=== PATIENT | female | born 1990 | race Hispanic/Latino ===

== ENCOUNTER 2020-07-22 15:49 | Emergency (ER) | payer MEDICAID ==
[2020-07-22 17:07] LABS: Bacteria,Urine 1+ /HPF (Negative); Bilirubin,Urine NEG (Negative); Blood,Urine NEG (Negative); Color,Urine Yellow (Yellow); Mucus,Urine FEW /HPF; Protein,Urine <15 mg/dL mg/dL (Negative); Urobilinogen,Urine < 2.0 mg/dL (<2.0)
[2020-07-22 17:12] LABS: Basophils # (Auto) 0.1 K/mm3 (0.0-0.1); Basophils % (Auto) 0.5 % (0.0-1.8); Eosinophils # (Auto) 0.2 K/mm3 (0.0-0.4); Eosinophils % (Auto) 1.6 % (0.0-4.3); Hemoglobin 13.7 gm/dl (10.1-14.3); Lymphocytes # (Auto) 1.7 K/mm3 (1.2-5.4); Lymphocytes % (Auto) 15.2 % (13.4-35.0); Mean Corpuscular HGB Conc 33 % (30-34); Mean Corpuscular Volume 87 fl (79-97); Monocytes # (Auto) 0.5 K/mm3 (0.0-0.8); Monocytes % (Auto) 4.9 % (0.0-7.3); Platelet Count 135 K/mm3 (140-440); Red Blood Count 4.73 M/mm3 (3.65-5.03); Red Cell Distribution Width 13.6 % (13.2-15.2)
[2020-07-22 17:36] LABS: Alanine Aminotransferase 15 units/L (7-56); Albumin 4.7 g/dL (3.9-5); Blood Urea Nitrogen 15 mg/dL (7-17); Calcium 9.9 mg/dL (8.4-10.2); Hemolysis Index 13
[2020-07-22 17:42] LABS: BUN/Creatinine Ratio 25
--- NOTE | 2020-07-22 17:55 | Emergency Department Report ---
ED General Adult HPI - General Chief complaint: Abdominal Pain Stated complaint: ABD PAIN Time Seen by Provider: 07/22/20 17:00 Source: patient Mode of arrival: Ambulatory Limitations: No Limitations - History of Present Illness Initial comments: 30-year-old female patient presents with complaints of suprapubic/right lower quadrant pain that began suddenly around 2 AM last night. She rates her current pain as a 7/10 in severity and describes it as stabbing and aching. Patient reports history of a ruptured ovarian cyst that caused severe internal bleeding and required surgery in November of this year. She also has surgical history of a tubal ligation. She denies any dysuria, hematuria, vaginal bleeding, vaginal discharge, fever/chills/sweats, vomiting, melena/hematochezia/diarrhea. Patient states the pain did start suddenly while having intercourse. She denies any concerns for STIs. -: Sudden Radiation: back Consistency: constant Improves with: immobilization Worsens with: movement - Related Data Previous Rx's Medication Instructions Recorded Last Taken Type Hydrocodone Bit/Acetaminophen 1 each PO Q6H PRN #20 tablet 08/12/13 Unknown Rx [Lortab 10-500 mg] cephALEXin [Keflex] 500 mg PO BID #20 capsule 08/12/13 Unknown Rx Acetaminophen/Codeine [Tylenol 1 tab PO Q8H PRN #8 tab 07/22/20 Unknown Rx /Codeine # 3 tab] Allergies Allergy/AdvReac Type Severity Reaction Status Date / Time No Known Allergies Allergy Unverified 08/12/13 00:22 ED Review of Systems ROS: Stated complaint: ABD PAIN Other details as noted in HPI Constitutional: denies: chills, diaphoresis, fever, malaise, weakness Respiratory: denies: cough, shortness of breath Cardiovascular: denies: chest pain Endocrine: denies: excessive sweating Gastrointestinal: abdominal pain, nausea. denies: vomiting, diarrhea, constipation, hematemesis, melena, hematochezia Genitourinary: denies: dysuria, frequency, hematuria, abnormal menses Musculoskeletal: denies: joint swelling Skin: denies: rash, lesions, change in color Neurological: denies: headache Hematological/Lymphatic: denies: swollen glands ED Past Medical Hx - Past Medical History Previous Medical History?: Yes Additional medical history: Preeclampsia, Ovarian cyst, SOCORRO - Surgical History Past Surgical History?: Yes Additional Surgical History: Tubaligation, Ruptured ovarian cyst surgery - Social History Smoking Status: Never Smoker Substance Use Type: Alcohol - Medications Home Medications: Home Medications Medication Instructions Recorded Confirmed Last Taken Type Hydrocodone Bit/Acetaminophen 1 each PO Q6H PRN #20 tablet 08/12/13 Unknown Rx [Lortab 10-500 mg] cephALEXin [Keflex] 500 mg PO BID #20 capsule 08/12/13 Unknown Rx Acetaminophen/Codeine [Tylenol 1 tab PO Q8H PRN #8 tab 07/22/20 Unknown Rx /Codeine # 3 tab] ED Physical Exam - General Limitations: No Limitations General appearance: alert, in no apparent distress, obese - Head Head exam: Present: atraumatic, normocephalic - Eye Eye exam: Present: normal appearance. Absent: scleral icterus - Neck Neck exam: Present: normal inspection - Respiratory Respiratory exam: Present: normal lung sounds bilaterally. Absent: respiratory distress - Cardiovascular Cardiovascular Exam: Present: regular rate, normal rhythm. Absent: systolic murmur, diastolic murmur, rubs, gallop - GI/Abdominal GI/Abdominal exam: Present: soft, tenderness (Suprapubic, right lower quadrant), normal bowel sounds. Absent: rebound, rigid - Expanded GI/Abdominal Exam Expanded GI/Abdominal exam: Present: tenderness at [place]bur[place]'s Point. Absent: Cook's sign - Back Exam Back exam: Present: normal inspection. Absent: CVA tenderness (R), CVA tenderness (L) - Neurological Exam Neurological exam: Present: alert, oriented X3 - Psychiatric Psychiatric exam: Present: normal affect, normal mood - Skin Skin exam: Present: warm, dry, intact, normal color. Absent: rash, cyanosis, diaphoretic ED Course Vital Signs 07/22/20 16:03 Temperature 98.2 F Pulse Rate 78 Respiratory 18 Rate Blood Pressure 130/73 O2 Sat by Pulse 98 Oximetry ED Medical Decision Making - Lab Data Result diagrams: 07/22/20 16:22 07/22/20 16:22 Lab Results 07/22/20 07/22/20 07/22/20 Range/Units 16:16 16:16 16:22 WBC 11.1 H (4.5-11.0) K/mm3 RBC 4.73 (3.65-5.03) M/mm3 Hgb 13.7 (10.1-14.3) gm/dl Hct 41.0 (30.3-42.9) % MCV 87 (79-97) fl MCH 29 (28-32) pg MCHC 33 (30-34) % RDW 13.6 (13.2-15.2) % Plt Count 135 L (140-440) K/mm3 Lymph % (Auto) 15.2 (13.4-35.0) % [place] % (Auto) 4.9 (0.0-7.3) % Eos % (Auto) 1.6 (0.0-4.3) % Baso % (Auto) 0.5 (0.0-1.8) % Lymph # 1.7 (1.2-5.4) K/mm3 [place] # 0.5 (0.0-0.8) K/mm3 Eos # 0.2 (0.0-0.4) K/mm3 Baso # 0.1 (0.0-0.1) K/mm3 Seg Neutrophils % 77.8 H (40.0-70.0) % Seg Neutrophils # 8.7 H (1.8-7.7) K/mm3 Sodium (137-145) mmol/L Potassium (3.6-5.0) mmol/L Chloride (98-107) mmol/L Carbon Dioxide (22-30) mmol/L Anion Gap mmol/L BUN (7-17) mg/dL Creatinine (0.6-1.2) mg/dL Estimated GFR ml/min BUN/Creatinine Ratio % Glucose (65-100) mg/dL Calcium (8.4-10.2) mg/dL Total Bilirubin (0.1-1.2) mg/dL AST (5-40) units/L ALT (7-56) units/L Alkaline Phosphatase (35-129) units/L Total Protein (6.3-8.2) g/dL Albumin (3.9-5) g/dL Albumin/Globulin Ratio % Lipase (13-60) units/L Urine Color Yellow (Yellow) Urine Turbidity Clear (Clear) Urine pH 6.0 (5.0-7.0) Ur Specific [place] 1.023 (1.003-1.030) Urine Protein <15 mg/dl (Negative) mg/dL Urine Glucose (UA) Neg (Negative) mg/dL Urine Ketones Neg (Negative) mg/dL Urine Blood Neg (Negative) Urine Nitrite Neg (Negative) Urine Bilirubin Neg (Negative) Urine Urobilinogen < 2.0 (<2.0) mg/dL Ur Leukocyte Esterase Neg (Negative) Urine WBC (Auto) 1.0 (0.0-6.0) /HPF Urine RBC (Auto) 1.0 (0.0-6.0) /HPF U Epithel Cells (Auto) 1.0 (0-13.0) /HPF Urine Bacteria (Auto) 1+ (Negative) /HPF Urine Mucus Few /HPF Urine HCG, Qual Negative (Negative) 07/22/20 Range/Units 16:22 WBC (4.5-11.0) K/mm3 RBC (3.65-5.03) M/mm3 Hgb (10.1-14.3) gm/dl Hct (30.3-42.9) % MCV (79-97) fl MCH (28-32) pg MCHC (30-34) % RDW (13.2-15.2) % Plt Count (140-440) K/mm3 Lymph % (Auto) (13.4-35.0) % [place] % (Auto) (0.0-7.3) % Eos % (Auto) (0.0-4.3) % Baso % (Auto) (0.0-1.8) % Lymph # (1.2-5.4) K/mm3 [place] # (0.0-0.8) K/mm3 Eos # (0.0-0.4) K/mm3 Baso # (0.0-0.1) K/mm3 Seg Neutrophils % (40.0-70.0) % Seg Neutrophils # (1.8-7.7) K/mm3 Sodium 140 (137-145) mmol/L Potassium 4.0 (3.6-5.0) mmol/L Chloride 103.3 (98-107) mmol/L Carbon Dioxide 22 (22-30) mmol/L Anion Gap 19 mmol/L BUN 15 (7-17) mg/dL Creatinine 0.6 (0.6-1.2) mg/dL Estimated GFR > 60 ml/min BUN/Creatinine Ratio 25 % Glucose 95 (65-100) mg/dL Calcium 9.9 (8.4-10.2) mg/dL Total Bilirubin 0.30 (0.1-1.2) mg/dL AST 17 (5-40) units/L ALT 15 (7-56) units/L Alkaline Phosphatase 42 (35-129) units/L Total Protein 7.4 (6.3-8.2) g/dL Albumin 4.7 (3.9-5) g/dL Albumin/Globulin Ratio 1.7 % Lipase 22 (13-60) units/L Urine Color (Yellow) Urine Turbidity (Clear) Urine pH (5.0-7.0) Ur Specific [place] (1.003-1.030) Urine Protein (Negative) mg/dL Urine Glucose (UA) (Negative) mg/dL Urine Ketones (Negative) mg/dL Urine Blood (Negative) Urine Nitrite (Negative) Urine Bilirubin (Negative) Urine Urobilinogen (<2.0) mg/dL Ur Leukocyte Esterase (Negative) Urine WBC (Auto) (0.0-6.0) /HPF Urine RBC (Auto) (0.0-6.0) /HPF U Epithel Cells (Auto) (0-13.0) /HPF Urine Bacteria (Auto) (Negative) /HPF Urine Mucus /HPF Urine HCG, Qual (Negative) - Radiology Data Radiology results: report reviewed TRANSVAGINAL PELVIC ULTRASOUND INDICATION / CLINICAL INFORMATION: Right lower quadrant and suprapubic pain. History of ovarian cysts. COMPARISON: None available. FINDINGS: The uterus measures 8.1 x 4.1 x 5.8 cm. The endometrial stripe measures 1.3 cm AP. No fibroids are seen. The right ovary measures 5.0 x 4.0 x 3.3 cm and the left ovary 3.6 x 2.8 x 2.0 cm. There is normal blood flow to both ovaries on Doppler exam. There is mild free fluid in the cul-de-sac. IMPRESSION: Mild free fluid in the cul-de-sac is most commonly physiologic. No evidence of ovarian mass or torsion. CT OF THE ABDOMEN AND PELVIS WITH INTRAVENOUS CONTRAST INDICATION / CLINICAL INFORMATION: Lower abdominal pain, worse on the right. TECHNIQUE: The patient received 100 cc Omnipaque [address] scans at this location are performed using CT dose reduction for ALARA by means of automated exposure control. COMPARISON: None available. FINDINGS: ABDOMEN: There are multiple gas-containing stones in the gallbladder. The gallbladder is normal in size without wall thickening or bile duct dilatation. The liver, spleen, pancreas, adrenal glands, kidneys and bowel demonstrate no significant abnormality. No adenopathy is seen. The lung bases are clear. PELVIS: There is a 4.0 cm corpus luteal cyst in a mildly enlarged right ovary. There is mild free fluid in the cul-de-sac. The uterus and left ovary are normal. A normal appendix is present and there is no evidence of diverticulitis. I do not identify a hernia. The distal ureters and urinary bladder are normal. IMPRESSION: 1. Mildly enlarged right ovary containing a 4 cm corpus luteal cyst. Mild associated free fluid in the cul-de-sac. 2. Cholelithiasis without CT evidence of acute cholecystitis. - Medical Decision Making 30-year-old female patient presents with complaints of suprapubic/right lower quadrant pain that began suddenly around 2 AM last night. She rates her current pain as a 7/10 in severity and describes it as stabbing and aching. Patient reports history of a ruptured ovarian cyst that caused severe internal bleeding and required surgery in November of this year. She also has surgical history of a tubal ligation. She denies any dysuria, hematuria, vaginal bleeding, vaginal discharge, fever/chills/sweats, vomiting, melena/hematochezia/diarrhea. Patient states the pain did start suddenly while having intercourse. She denies any concerns for STIs. No significant abnormalities are noted on transvaginal ultrasound. CT abdomen performed given location of pain and to rule out appendicitis. CT shows the followin. Mildly enlarged right ovary containing a 4 cm corpus luteal cyst. Mild associated free fluid in the cul-de-sac. 2. Cholelithiasis without CT evidence of acute cholecystitis. Patient denies symptoms being associated with eating. No Cook sign noted on exam. Symptoms likely due to large ovarian cyst. Recommend follow-up with PETROLEUM INSPECTOR in 3 days. Pain is controlled, vitals are normal, patient is stable for discharge home. Strict return precautions were discussed in great detail with patient who verbalized understanding. Critical care attestation.: If time is entered above; I have spent that time in minutes in the direct care of this critically ill patient, excluding procedure time. ED Disposition Clinical Impression: Acute abdominal pain Ovarian cyst Qualifiers: Laterality: right Qualified Code(s): N83.201 - Unspecified ovarian cyst, right side Disposition: - TO HOME OR SELFCARE Is pt being admited?: No Condition: Stable Instructions: Ovarian Cyst (ED) Additional Instructions: Please follow-up with your PETROLEUM INSPECTOR in 3 days Prescriptions: Acetaminophen/Codeine [Tylenol /Codeine # 3 tab] 1 tab PO Q8H PRN #8 tab PRN Reason: Pain , Severe (7-10) Referrals: PRIMARY CARE,MD [Primary Care Provider] - 3-5 Days
[2020-07-22] MEDS ORDERED: SODIUM CHLORIDE 0.9% 1000 ML 1,000 ML IV ONE (17:57)
[2020-07-22] MEDS ORDERED: ONDANSETRON 4 MG/2 ML INJ IV ONE (17:57)
[2020-07-22] MEDS ORDERED: MORPHINE 4 MG/1 ML INJ IV ONE (17:57)
[2020-07-22 18:14] LABS: HCG Qualitative,Urine Negative (Negative)
--- NOTE | 2020-07-22 19:37 | Ultrasound Report ---
TRANSVAGINAL PELVIC ULTRASOUND INDICATION / CLINICAL INFORMATION: Right lower quadrant and suprapubic pain. History of ovarian cysts. COMPARISON: None available. FINDINGS: The uterus measures 8.1 x 4.1 x 5.8 cm. The endometrial stripe measures 1.3 cm AP. No fibroids are se en. The right ovary measures 5.0 x 4.0 x 3.3 cm and the left ovary 3.6 x 2.8 x 2.0 cm. There is normal bl ood flow to both ovaries on Doppler exam. There is mild free fluid in the cul-de-sac. IMPRESSION: Mild free fluid in the cul-de-sac is most commonly physiologic. No evidence of ovarian ma ss or torsion. Signer Name: Allan Guido MD Signed: 07/22/2020 7:33 PM Workstation Name: [id number]
--- NOTE | 2020-07-22 20:29 | Cat Scan Report ---
CT OF THE ABDOMEN AND PELVIS WITH INTRAVENOUS CONTRAST INDICATION / CLINICAL INFORMATION: Lower abdominal pain, worse on the right. TECHNIQUE: The patient received 100 cc Omnipaque [address] scans at this location are performed using CT dose reduction for ALARA by means of automated exposure control. COMPARISON: None available. FINDINGS: ABDOMEN: There are multiple gas-containing stones in the gallbladder. The gallbladder is normal in si ze without wall thickening or bile duct dilatation. The liver, spleen, pancreas, adrenal glands, kidn eys and bowel demonstrate no significant abnormality. No adenopathy is seen. The lung bases are clear . PELVIS: There is a 4.0 cm corpus luteal cyst in a mildly enlarged right ovary. There is mild free flu id in the cul-de-sac. The uterus and left ovary are normal. A normal appendix is present and there is no evidence of diverticulitis. I do not identify a hernia. The distal ureters and urinary bladder ar e normal. IMPRESSION: 1. Mildly enlarged right ovary containing a 4 cm corpus luteal cyst. Mild associated free fluid in th e cul-de-sac. 2. Cholelithiasis without CT evidence of acute cholecystitis. Signer Name: Allan Guido MD Signed: 07/22/2020 8:24 PM Workstation Name: [id number]
[2020-07-22] MEDS ORDERED: KETOROLAC 30 MG/1 ML INJ IV ONE (20:40)
[2020-07-22 22:00] VITALS: BP 114/76
== END 2020-07-22 22:06 | disposition home or self-care (01) ==
LOC: ED 15:49
DX: N83.11 Corpus luteum cyst of right ovary (principal); K80.80 Other cholelithiasis without obstruction; Z98.51 Tubal ligation status; Z79.899 Other long term (current) drug therapy
CPT/HCPCS: 36415; 74177; 76830; 80053; 81001; 81025; 83690; 85025; 96361; 96374; 96375; 99284; J1885; J2270; J2405; J7030; Q9967

== ENCOUNTER 2020-10-12 10:17 | Day surgery (SDC) | payer MEDICAID ==
--- NOTE | 2020-10-12 11:08 | Anesthesia Day of Surgery ---
Anesthesia Day of Surgery - Day of Surgery Patient Examined: Yes Patient H&P Reviewed: Yes Patient is NPO: Yes
--- NOTE | 2020-10-12 11:09 | Anesthesia Consultation ---
Anesthesia Consult and Med Hx Date of service: 10/12/20 - Airway Anesthetic Teeth Evaluation: Chipped ROM Head & Neck: Adequate Mental/Hyoid Distance: Adequate Mallampati Class: Class II Intubation Access Assessment: Good - Pre-Operative Health Status ASA Pre-Surgery Classification: ASA2 Proposed Anesthetic Plan: General - Pulmonary Hx Smoking: Yes (STOPPED X 6 YRS) Hx Respiratory Symptoms: No (+2FS) Hx Sleep Apnea: No (HUSSAIN PRE SCREEN LOW RISK) - Cardiovascular System Hx Hypertension: No - Central Nervous System Hx Psychiatric Problems: No - Gastrointestinal Hx Gastroesophageal Reflux Disease: No - Endocrine Hx Renal Disease: No Hx Non-Insulin Dependent Diabetes: No Hx Thyroid Disease: No - Hematic Hx Anemia: Yes (WITH PREG ONLY- NOT RECENT) - Other Systems Hx Cancer: No Hx Obesity: Yes
[2020-10-12] MEDS ORDERED: ONDANSETRON 4 MG/2 ML INJ IV PRN (11:30)
[2020-10-12] MEDS ORDERED: ACETAMINOPHEN 500 MG TAB PO SCH (11:30)
[2020-10-12] MEDS ORDERED: MAGNESIUM OXIDE 400 MG TAB PO SCH (11:30)
[2020-10-12] MEDS ORDERED: HYDROmorphone 1 MG/1 ML INJ IV PRN ×2 (11:30)
[2020-10-12] MEDS ORDERED: BUPIVACAINE/PF (0.5%) 5 MG/1 ML 30 ML VIAL INFILTRATI ONE ×3 (11:51→12:59)
[2020-10-12] MEDS ORDERED: LIDOCAINE (1%) 10 MG/1 ML VIAL 20 ML MDV ONE ×2 (11:51→13:24)
[2020-10-12] MEDS ORDERED: LACTATED RINGERS 1,000 ML IV SCH (12:00)
[2020-10-12] MEDS ORDERED: CELECOXIB 200 MG CAP PO NR (12:00)
[2020-10-12] MEDS ORDERED: GABAPENTIN 300 MG CAP PO NR (12:00)
[2020-10-12] MEDS ORDERED: MIDAZOLAM 2 MG/2 ML INJ IV NR (12:00)
[2020-10-12] MEDS ORDERED: ceFAZolin/Water 2 GM/20 ML 2 GM/20 ML SYRINGE IV NR (12:00)
[2020-10-12] MEDS ORDERED: propofoL 200 MG/20 ML VIAL IV ONE (12:01)
[2020-10-12] MEDS ORDERED: LIDOCAINE MPF (2%) 20 MG/1 ML VIAL 5 ML ONE (12:01)
[2020-10-12] MEDS ORDERED: ROCURONIUM 50 MG/5 ML INJ IV ONE (12:01)
[2020-10-12] MEDS ORDERED: dexAMETHasone 20 MG/5 ML VIAL ONE (12:01)
[2020-10-12] MEDS ORDERED: HYDROmorphone 1 MG/1 ML INJ ONE (12:01)
[2020-10-12] MEDS ORDERED: ONDANSETRON 4 MG/2 ML INJ ONE (12:01)
[2020-10-12] MEDS ORDERED: LIDOCAINE (2%) 20 MG/1 ML VIAL 20 ML MDV INFILTRATI ONE ×2 (12:59)
[2020-10-12] MEDS ORDERED: BUPIVACAINE/PF (0.5%) 5 MG/1 ML 10 ML VIAL INFILTRATI ONE (13:24)
[2020-10-12] MEDS ORDERED: NEOSTIGMINE 10MG/10 ML INJ MDV ONE (13:28)
[2020-10-12] MEDS ORDERED: GLYCOPYRROLATE 0.4 MG/2 ML INJ ONE (13:28)
--- NOTE | 2020-10-12 13:50 | Short Stay Summary ---
"Short Stay Documentation Date of service: 10/12/20 - History Principal diagnosis: Calculus of gallbladder without cholecystitis H&P: obtained from office - Allergies and Medications Current Medications: Allergies No Known Allergies Allergy (Verified 10/08/20 17:31) Home Medications Medication Instructions Recorded Confirmed Last Taken Type Dicyclomine [Bentyl] 20 mg PO QHS 10/08/20 10/12/20 10/10/20 History Active Medications Acetaminophen (Tylenol) 1,000 mg PO ONCE DANDRE Stop: 10/12/20 17:00 Last Admin: 10/12/20 11:25 Dose: 1,000 mg Documented by: Celecoxib (Celebrex) 400 mg PO PREOP NR Stop: 10/12/20 21:00 Last Admin: 10/12/20 11:25 Dose: 400 mg Documented by: Gabapentin (Gabapentin) 600 mg PO PREOP NR Stop: 10/12/20 17:00 Last Admin: 10/12/20 11:25 Dose: 600 mg Documented by: Hydromorphone HCl (Dilaudid) 0.25 mg IV Q10MIN PRN PRN Reason: Pain, Moderate (4-6) Stop: 10/12/20 17:00 Hydromorphone HCl (Dilaudid) 0.5 mg IV Q10MIN PRN PRN Reason: Pain , Severe (7-10) Stop: 10/12/20 17:00 Lactated Ringer's (Lactated Ringers) 1,000 mls @ 125 mls/hr IV DIRECT DANDRE Last Admin: 10/12/20 11:30 Dose: 125 mls/hr Documented by: Cefazolin Sodium (Ancef/Sterile Water 2 Gm/20 Ml) 2 gm in 20 mls @ 80 mls/hr IV PREOP NR Stop: 10/12/20 17:00 Magnesium Oxide (Mag-Ox) 400 mg PO ONCE DANDRE Stop: 10/12/20 21:00 Last Admin: 10/12/20 11:25 Dose: 400 mg Documented by: Midazolam HCl (Versed) 2 mg IV PREOP NR Stop: 10/12/20 23:59 Last Admin: 10/12/20 11:30 Dose: 2 mg Documented by: Ondansetron HCl (Zofran) 4 mg IV ONCE PRN PRN Reason: Nausea And Vomiting - Brief post op/procedure progress note Date of procedure: 10/12/20 Pre-op diagnosis: Calculus of gallbladder without cholecystitis Post-op diagnosis: same Procedure: Laparoscopic cholecystectomy Anesthesia: GETA, local Findings: Gallbladder with moderate size stones Surgeon: SOHA PAULA (Fantasma Raymond, SHANK STITCHER) Estimated blood loss: minimal Pathology: list (Gallbladder) Specimen disposition: to lab Condition: stable - Hospital course Hospital course: Patient observed in PACU and discharged home in stable condition when criteria met - Disposition Condition at discharge: Good Disposition: DC-01 TO HOME OR SELFCARE Short Stay Discharge Plan Activity: other (No heavy lifting. No driving if taking prescription pain medication) Diet: low fat Wound: open to air, per your surgeon's advice Additional Instructions: General Surgery MD Soha Chilel, DO [address] | [place] [address] | F ([phone]) [email or web address] Patient discharge instructions You have undergone surgery to remove the gallbladder. You will feel sore for the next few days. Bruising around your incision could be normal. Diet: Regular diet foods that are soft and easy to digest. Try to avoid fatty or fried foods right away. Make sure to drink plenty of water and stay hydrated Activity: You are encouraged to walk and may go up and down the steps. Do not drive if you are taking prescription, narcotic pain medications. Showering: You may shower in 1 day. Pat your incision dry and do not scrub or rub. Do not get into a hot tub, pool, or bathtub where your incisions will be under water. Wound care instructions: Keep incisions clean and dry. There is skin glue on your incisions which will fall off on its own. Pain medications: You are encouraged to use over the counter pain medications like Tylenol or Ibuprofen as directed on the bottle for pain control. If your pain is not controlled with these medications, you have been given a prescription for stronger pain medications. Please use as directed and if you do not finish the prescription pain medications, please return to your pharmacy. Reasons to call Surgeons office: If you have fevers >100.4 If you are having increasing abdominal pain or vomiting If you have pain that is not controlled with prescription pain medications If you have drainage if pus or redness around the incisions. When to come back to see your Surgeon: Please call the office ([phone]) to make an appointment to see the surgeon in 2 weeks. Call if you have any questions. [address] [facility] Ground floor Follow up with: PRIMARY CARE, [Primary Care Provider] - 7 Days SOHA PAULA DO [Staff Physician] - 14 Days Prescriptions: HYDROcodone/APAP 5-325 [[place] 5/325] 1 each PO Q6HR PRN #20 tablet PRN Reason: Pain , Severe (7-10)"
[2020-10-12] MEDS ORDERED: PROMETHAZINE 25 MG RECT SUPP PR ONE (13:56)
[2020-10-12] MEDS ORDERED: PROMETHAZINE 25 MG RECT SUPP PR PRN (14:03)
[2020-10-12] MEDS ORDERED: HYDROcodone/ACETAMINOPHEN 5-325 MG TAB ONE (15:12)
[2020-10-12] MEDS ORDERED: HYDROcodone/ACETAMINOPHEN 5-325 MG TAB PO PRN (15:14)
--- NOTE | 2020-10-12 15:34 | Post Anesthesia Evaluation ---
- Post Anesthesia Evaluation Patient Participated: Yes Airway Patent: Yes Stable Respiratory Function: Yes Nausea/Vomiting: No Temp > 96.8F: Yes Pain Manageable: Yes Adequeate Hydration: Yes Anesthesia Complications: No Block Receding Appropriately: Not Applicable Patient on Ventilator: No
--- NOTE | 2020-10-12 16:26 | Operative Report ---
Operative Report Operative Report: Date of procedure: 10/12/20 Pre-op diagnosis: Calculus of gallbladder without cholecystitis Post-op diagnosis: same Procedure: Laparoscopic cholecystectomy Anesthesia: GETA, local Findings: Gallbladder with moderate size stones Surgeon: TWYLA PAULA (Fantasma Raymond, TECHNICAL INSPECTOR) Estimated blood loss: minimal Pathology: list (Gallbladder) Specimen disposition: to lab Condition: stable Hospital course: Patient observed in PACU and discharged home in stable condition when criteria met HPI an indication: 30-year-old female who presented to the surgery clinic for evaluation of gallstones. Patient had been having intermittent right upper quadrant pain with nausea and was recently seen in the emergency room for the symptoms. She was diagnosed with cholelithiasis. As the patient was symptomatic, it was recommended she undergo cholecystectomy electively. All risk and benefits, alternatives to surgery discussed with patient questions answered. Consent was obtained for lap cholecystectomy, possible open, possible cholangiogram. Procedure in detail: The patient was identified in the preoperative area and taken back to the operating room, placed on the operating room table in supine position. After anesthesia was induced, the abdomen was prepped and draped in usual sterile fashion and timeout was performed. Local anesthetic was infiltrated into all of the skin incision sites. Using an 11 blade a sup raumbilical incision was made and through this a Veress needle was used to insufflate the abdomen. Due to the patient's body habitus the Veress needle did not traverse the abdominal wall into the peritoneum and therefore it was removed. A emma incision was made in the left upper quadrant at Alejo's point through which a Veress needle was inserted without difficulty. The position of the veress needle was confirmed with the saline drop test and the abdomen was then insufflated to 15 mmHg without incident. A 5 mm Optiview trocar was placed through the supraumbilical incision under direct visualization. The abdomen is inspected and there was no underlying injury to any of the abdominal contents. The Veress needle was identified and removed. An additional 12 mm subxyphoid port, and 2, 5mm RUQ ports were then placed under direct visualization. The patient was then placed into reverse Trendelberg and tilted to the left. The gallbladder was visualized. The gallbladder was grasped and retracted cephalad. The cystic duct and artery were then carefully dissected and the critical view obtained, and the cystic duct and artery were the only two structures seen entering the gallbladder. Three clips were then placed on the proximal aspect of the cystic duct and one clip distally, and 2 clips on the cystic artery proximally and one distal. The cystic duct and cystic artery were then transected in between the clips using EndoShears. The gallbladder was dissected off the liver bed using hook electrocautery. The gallbladder was placed into a Endo Catch bag and removed from the abdomen via the 12mm port. The gallbladder fossa was then inspected and hemostasis achieved using electrocautery. Hemostasis was ensured. The clips on the cystic duct and artery were visualized and intact. There was no bleeding or bile leakage seen. The patient was then placed into neutral position. The 12 mm port fascia was closed with interrupted 0 Vicryl sutures using the Evelio Ferro device. The remaining ports were removed under direct visualization. Skin incisions were closed with 4-0 Monocryl subcuticular stitches and skin glue. All skin incisions were once again infiltrated with local anesthetic. The gallbladder was inspected on the back table. There were moderate sized stones of the gallbladder and bile. Only one tubular structure seen entering the gallbladder. At the end case all sponge, instrument, sharp counts were correct 2. The patient was awoken from anesthesia, extubated, taken to PACU in stable condition.
[2020-10-12 17:51] VITALS: BP 113/69
== END 2020-10-12 10:18 | disposition home or self-care (01) ==
LOC: OR 10:17
PROVIDERS: ATTEND Surgery
DX: K80.10 Calculus of gallbladder with chronic cholecystitis without obstruction (principal); Z20.828 Contact with and (suspected) exposure to other viral communicable diseases; E66.9 Obesity, unspecified; D64.9 Anemia, unspecified; Z79.899 Other long term (current) drug therapy; Z87.891 Personal history of nicotine dependence; Z98.51 Tubal ligation status; Z98.890 Other specified postprocedural states; Z68.35 Body mass index [BMI] 35.0-35.9, adult
CPT/HCPCS: 47562; 81025; 88304; J0690; J1100; J1170; J2250; J2405; J2704; J2710; J7120; U0003